=== PATIENT | female | born 1970 | race African-American/Black ===

== ENCOUNTER 2017-03-30 23:20 | Emergency (ER) | payer OTHER, MEDICAID ==
[~2017-03-30] VITALS: Ht 167.6 cm; Wt 77.0 kg
[2017-03-31] MEDS ORDERED: IBUPROFEN 100MG/5ML UDC PO ONE (04:15)
[2017-03-31] MEDS ORDERED: NAPROXEN 500MG TABLET PO ONE (04:15)
[2017-03-31 05:13] VITALS: BP 116/85
== END 2017-03-31 05:19 | disposition home or self-care (01) ==
LOC: ER 23:20
DX: M54.5 Low back pain (principal); M54.2 Cervicalgia; V89.2XXA Person injured in unspecified motor-vehicle accident, traffic, initial encounter; Y93.89 Activity, other specified; Y92.89 Other specified places as the place of occurrence of the external cause; Y99.8 Other external cause status
CPT/HCPCS: 81025; 99283; Z7610

== ENCOUNTER 2017-08-09 19:47 | Emergency (ER) | payer MEDICAID, OTHER ==
[~2017-08-09] VITALS: Ht 167.6 cm; Wt 85.0 kg
[2017-08-09] MEDS ORDERED: IBUPROFEN 100MG/5ML UDC PO ONE (23:45)
[2017-08-10 01:15] VITALS: BP 112/71
== END 2017-08-10 01:18 | disposition home or self-care (01) ==
LOC: ER 19:47
DX: M25.572 Pain in left ankle and joints of left foot (principal); R60.9 Edema, unspecified
CPT/HCPCS: 73610; 81025; 99284